=== PATIENT | female | born 1995 | race African-American/Black ===

== ENCOUNTER 2021-03-31 18:57 | Emergency (ER) | payer BC, SELFPAY ==
[2021-03-31 18:59] VITALS: BP 122/73; PULSE 120; RESP 20; TEMP 36.7; O2SAT 100
--- NOTE | 2021-03-31 19:26 | ED.GENADULT ---
HPI - General Adult General Chief complaint: Nausea/Vomiting/Diarrhea Stated complaint: dizzy/vomiting Time Seen by Provider: 03/31/21 19:12 History of Present Illness HPI narrative: Patient with 25-year-old female presents emerged part with chief complaint of nausea and vomiting. Patient reports that she ate out last night and woke up this morning and started having nausea and had several episodes of vomiting. Patient reports that she is currently about 30 weeks followed by OB patient reports no abdominal cramping no loss of fluid no vaginal bleeding. Patient reports has had no diarrhea with this reports that she feels a little dehydrated after the vomiting. Related Data Allergies Allergy/AdvReac Type Severity Reaction Status Date / Time No Known Allergies Allergy Unverified 11/26/17 12:10 Review of Systems Review of Systems: A 10 system review of systems was completed on the patient and is negative except for what is stated in the HPI. Nursing and ancillary documentation was reviewed. Exam Narrative: GENERAL: Well-appearing, well-nourished, and in no acute distress. HEAD: Normocephalic, atraumatic. EYES: PERRLA and EOMI. ENT: Nares clear, no rhinorrhea or epistaxis. Mucous membranes moist. NECK: Supple. CHEST: Clear to auscultation. No respiratory distress. HEART: Regular rate and rhythm. No murmur heard. Normal peripheral pulses. ABDOMEN: Soft, gravid abdomen nontender, nondistended, normal active bowel sounds. EXTREMITIES: Normal range of motion. No edema. SKIN: Warm, dry, no rash. NEURO: No focal deficits. Alert and oriented x3. PSYCH: Normal mood and affect. Course Vital Signs Vital signs: Vital Signs Temperature 36.7 C 03/31/21 18:59 Pulse Rate 120 H 03/31/21 18:59 Respiratory Rate 20 03/31/21 18:59 Blood Pressure 122/73 03/31/21 18:59 Pulse Oximetry 100 03/31/21 18:59 Temperature 36.7 C 03/31/21 18:59 Pulse Rate 120 H 03/31/21 18:59 Respiratory Rate 20 03/31/21 18:59 Blood Pressure 122/73 03/31/21 18:59 Pulse Oximetry 100 03/31/21 18:59 Medical Decision Making Vital Signs Vital Signs: Vital Signs Temperature 36.7 C 03/31/21 18:59 Pulse Rate 120 H 03/31/21 18:59 Respiratory Rate 20 03/31/21 18:59 Blood Pressure 122/73 03/31/21 18:59 Pulse Oximetry 100 03/31/21 18:59 Temperature 36.7 C 03/31/21 18:59 Pulse Rate 120 H 03/31/21 18:59 Respiratory Rate 20 03/31/21 18:59 Blood Pressure 122/73 03/31/21 18:59 Pulse Oximetry 100 03/31/21 18:59 Lab Data Result diagrams: 03/31/21 19:28 03/31/21 19:28 Labs: Lab Results 03/31/21 03/31/21 03/31/21 Range/Units 19:28 19:28 21:16 WBC 8.8 (4.5-10.0) K/mm3 RBC 4.05 L (4.2-5.4) M/mm3 Hgb 12.4 (12.0-15.0) g/dL Hct 38.1 (37.0-47.0) % MCV 94.1 (80-100) fl MCH 30.6 (26-34) pg MCHC 32.5 (32-36) g/dl RDW 14.4 (11.5-14.5) % Plt Count 181 (150-375) k/mm3 MPV 10.3 (7.4-10.4) fl Immature Gran % (Auto) 1.1 H (0-0.5) % Neut % (Auto) 89.8 H (45.5-73.1) % Lymph % (Auto) 4.7 L (18.3-44.2) % [place] % (Auto) 4.2 (2.6-8.5) % Eos % (Auto) 0.1 (0-4.4) % Baso % (Auto) 0.1 L (0.2-1.2) % Lymph # (Auto) 0.41 L (0.9-3.2) K/mm3 [place] # (Auto) 0.4 (0.1-0.6) K/mm3 Eos # (Auto) 0.0 (0-0.3) K/mm3 Baso # (Auto) 0.0 (0.0-0.1) K/mm3 Abs Immat Gran (auto) 0.10 H (0.00-0.031) K/mm3 Absolute Neuts (auto) 7.9 H (1.3-6.7) K/mm3 Absolute Nucleated RBC 0.0 (0.0-0.012) K/mm3 Nucleated RBC % 0.0 (0.0-0.2) % Sodium 134 L (137-145) mmol/L Potassium 3.5 (3.4-5.0) mmol/L Chloride 107 (98-107) mmol/L Carbon Dioxide 19 L (22-30) mmol/L Anion Gap 8 (8-16) mmol/L BUN 8 (7-17) mg/dL Creatinine 0.40 L (0.7-1.0) mg/dL Estim Creat Clear Calc 175 ml/min Estimated GFR > 60 (59 - ) Glucose 85 (65-110) mg/dL Calcium 8.8 (8.4-
[2021-03-31 19:34] LABS: Basophils Percent Auto 0.1 % (0.2-1.2); Eosinophils Percent Auto 0.1 % (0-4.4); Hematocrit 38.1 % (37.0-47.0); Hemoglobin 12.4 g/dL (12.0-15.0); Immature Granulocyte Percent A 1.1 % (0-0.5); Lymphocytes Absolute Auto 0.41 K/mm3 (0.9-3.2); Lymphocytes Percent Auto 4.7 % (18.3-44.2); Mean Corpuscular HGB Conc 32.5 g/dl (32-36); Mean Corpuscular Hemoglobin 30.6 pg (26-34); Mean Corpuscular Volume 94.1 fl (80-100); Mean Platelet Volume 10.3 fl (7.4-10.4); Monocytes Absolute Auto 0.4 K/mm3 (0.1-0.6); Monocytes Percent Auto 4.2 % (2.6-8.5); Neutrophils Absolute Auto 7.9 K/mm3 (1.3-6.7); Neutrophils Percent Auto 89.8 % (45.5-73.1); Platelet Count Result 181 k/mm3 (150-375); Red Blood Count 4.05 M/mm3 (4.2-5.4); Red Cell Distribution Width 14.4 % (11.5-14.5); White Blood Count 8.8 K/mm3 (4.5-10.0)
[2021-03-31] MEDS: SODIUM CHLORIDE 0.9% IV 1,000 ML 999 ML IV CONT (19:34)
[2021-03-31] MEDS: METOCLOPRAMIDE HCL INJ 10 MG/2 ML VIAL IV PUSH (19:36)
[2021-03-31 19:44] LABS: Alanine Aminotransferase 17 U/L (4-35); Albumin Level 3.8 g/dL (3.5-5.1); Alkaline Phosphatase 87 U/L (38-126); Anion Gap 8 mmol/L (8-16); Aspartate Amino Transferase 30 U/L (14-36); Bilirubin,Total 0.6 mg/dL (0.2-1.3); Blood Urea Nitrogen 8 mg/dL (7-17); Calcium 8.8 mg/dL (8.4-10.2); Carbon Dioxide 19 mmol/L (22-30); Chloride 107 mmol/L (98-107); Estimated CRCL calculation 175 ml/min; Estimated Glomerular Filt Rate > 60; Glucose 85 mg/dL (65-110); Lipase 46 U/L (23-300); Potassium 3.5 mmol/L (3.4-5.0); Sodium 134 mmol/L (137-145)
[2021-03-31 21:27] LABS: Add Urine Microscopic? YES; Amorphous Sediment Urine Few; Appearance Urine Cloudy (Clear); Bacteria Urine Trace /hpf; Bilirubin Urine Negative (Negative); Color Urine Amber (Yellow); Glucose Urine UA Negative (Negative); Ketones Urine 2+ mg/dL (Negative); Leukocyte Esterase Ur 3+ LEU/UL (Negative); Mucus Urine Few /lpf; Nitrate Urine Negative (Negative); Protein Urine 1+ mg/dL (Negative); Squamous Epithelial Cell Urine Many /hpf (Few); Urobilinogen Urine Negative mg/dL (<2.0); WBC Urine 31-50 /hpf
[2021-03-31 21:30] LABS: Blood Urine Negative (Negative); Specific Grav Ur 1.032 (1.001-1.035)
[2021-03-31 22:05] VITALS: BP 113/69; PULSE 100; RESP 16; O2SAT 100
== END 2021-03-31 22:05 | disposition home or self-care (01) ==
PROVIDERS: Emergency Provider Emergency Medicine
DX: R11.2 Nausea with vomiting, unspecified (principal); N39.0 Urinary tract infection, site not specified
CPT/HCPCS: 36415; 80053; 81001; 83690; 85025; 87086; 87088; 96361; 96374; 99284; J2765; J7030

== ENCOUNTER 2021-06-04 15:50 | Outpatient (RCR) | payer BC, SELFPAY ==
--- NOTE | ~2021-06-04 | US_ITS ---
EXAMINATION: US OB BPP wo non-stress DATE: 06/04/2021 17:26 INDICATION: Nonreactive nonstress test on in office examination during third trimester . TECHNIQUE: Real-time pelvic ultrasound was performed. The interpreting radiologist was not present fo r the study. COMPARISON: None. FINDINGS: There is a single living fetus in vertex presentation. The placenta is fundal. heart rate is 1 24 beats per minute (bpm). Biophysical profile performed by the technologist: breathing (30 sec sustained breathing in 30 minutes): 2 out of 2 movement (3 gross body movements in 30 minutes): 2 out of 2 tone (one episode of aekjpoi-llteouatz-phidphl limb movement): 2 out of 2 Amniotic fluid pocket (2 cm): 2 out of 2 Total score: 8 out of 8 IMPRESSION: 1. Single living fetus in vertex presentation with heart rate of 124 bpm. 2. Biophysical profile 8 out of 8. Reviewed, dictated and finalized at location A. SLABS SAWYER
[2021-06-04 17:34] VITALS: BP 111/70; PULSE 90
== END 2021-08-01 09:35 | disposition home or self-care (01) ==
LOC: ANHOBOP 15:50
PROVIDERS: Visit Provider Obstetrics & Gynecology
DX: O26.893 Other specified pregnancy related conditions, third trimester (principal); Z3A.39 39 weeks gestation of pregnancy
CPT/HCPCS: 59025; 76819

== ENCOUNTER 2021-06-10 07:12 | Inpatient (IN) | payer BC, SELFPAY ==
[2021-06-10] VITALS (70 sets, daily range): BP systolic 101–153; BP diastolic 55–110; PULSE 71–111; RESP 18; TEMP 36.1–37.1; O2SAT 99–100; BMI 35.1
--- NOTE | 2021-06-10 07:51 | WPDOBADMIT ---
Obstetrics - Admit Note Admission Note: 25 y/o G1 @ 40 weeks here with contractions and started leaking fluid after arrival. VSS Regular contractions FHR category 1 Cervix 2-3 cm per nurse Leaking meconium fluid Planning epidural Anticipate record reviewed. No pertinent additions to the history and/or any subsequent changes in the physical findings that are not consistent with the expected course of the were found. Additions to the history and/or subsequent changes in the physical findings follow. None.
[2021-06-10] MEDS: LACTATED RINGERS 1,000 ML 125 ML IV CONT ×2 (08:26→10:13)
[2021-06-10] MEDS: OXYTOCIN 30 UNITS/NS 500 ML 30 UNITS/500 ML BAG 6 UNITS IV CONT (08:26)
[2021-06-10 08:29] LABS: Basophils Percent Auto 0.2 % (0.2-1.2); Eosinophils Absolute Auto 0.1 K/mm3 (0-0.3); Hematocrit 42.4 % (37.0-47.0); Hemoglobin 14.4 g/dL (12.0-15.0); Immature Granulocyte Absolute 0.08 K/mm3 (0.00-0.031); Lymphocytes Absolute Auto 1.24 K/mm3 (0.9-3.2); Lymphocytes Percent Auto 15.3 % (18.3-44.2); Mean Corpuscular Hemoglobin 31.4 pg (26-34); Mean Corpuscular Volume 92.6 fl (80-100); Mean Platelet Volume 11.2 fl (7.4-10.4); Monocytes Absolute Auto 0.5 K/mm3 (0.1-0.6); Monocytes Percent Auto 6.3 % (2.6-8.5); Neutrophils Absolute Auto 6.2 K/mm3 (1.3-6.7); Neutrophils Percent Auto 76.2 % (45.5-73.1); Platelet Count Result 183 k/mm3 (150-375); Red Blood Count 4.58 M/mm3 (4.2-5.4); White Blood Count 8.1 K/mm3 (4.5-10.0)
--- NOTE | 2021-06-10 10:59 | WPDANESEPP ---
Anes - Eval Pre Procedure Procedure: labor epidural Date/Time: 06/10/21 10:59 Surgeon: deyanira Preop Diagnosis: labor pain Pre Op Diagnosis: Labor Patient Data Age: 25 Gender: F Height: 1.6 m Weight: 90 kg Last Vital Signs Temp 36.5 C 06/10/21 09:35 Pulse 82 06/10/21 10:59 BP 125/71 06/10/21 10:59 Allergies Allergy/AdvReac Type Severity Reaction Status Date / Time No Known Allergies Allergy Verified 05/13/21 14:43 Home Medications Medication Instructions Recorded Confirmed Type prenat.vits,jose cruz,[id number] 1 tablet PO DAILY 05/13/21 06/04/21 History [ #2] diphenhydramine HCl [Benadryl] 25 mg PO HS PRN 06/04/21 06/04/21 History ferrous sulfate [Slow Fe] 142 mg PO DAILY 06/04/21 06/04/21 History fexofenadine [Lucille] 30 mg PO DAILY 06/04/21 06/04/21 History Laboratory Tests 06/10/21 06/10/21 08:13 08:13 WBC 8.1 K/mm3 K/mm3 (4.5-10.0) RBC 4.58 M/mm3 M/mm3 (4.2-5.4) Hgb 14.4 g/dL g/dL (12.0-15.0) Hct 42.4 % % (37.0-47.0) MCV 92.6 fl fl (80-100) MCH 31.4 pg pg (26-34) MCHC 34.0 g/dl g/dl (32-36) RDW 15.0 % H % (11.5-14.5) Plt Count 183 k/mm3 k/mm3 (150-375) MPV 11.2 fl H fl (7.4-10.4) Immature Gran % (Auto) 1.0 % H % (0-0.5) Neut % (Auto) 76.2 % H % (45.5-73.1) Lymph % (Auto) 15.3 % L % (18.3-44.2) [place] % (Auto) 6.3 % % (2.6-8.5) Eos % (Auto) 1.0 % % (0-4.4) Baso % (Auto) 0.2 % % (0.2-1.2) Lymph # (Auto) 1.24 K/mm3 K/mm3 (0.9-3.2) [place] # (Auto) 0.5 K/mm3 K/mm3 (0.1-0.6) Eos # (Auto) 0.1 K/mm3 K/mm3 (0-0.3) Baso # (Auto) 0.0 K/mm3 K/mm3 (0.0-0.1) Abs Immat Gran (auto) 0.08 K/mm3 H K/mm3 (0.00-0.031) Absolute Neuts (auto) 6.2 K/mm3 K/mm3 (1.3-6.7) Absolute Nucleated RBC 0.0 K/mm3 K/mm3 (0.0-0.012) Nucleated RBC % 0.0 % % (0.0-0.2) RPR Pending : gestational age (CHIDI 06/10/21) Patient hx anesthesia problems: none Family hx anesthesia problems: none Results Review: All pre-operative results and documents have been reviewed as part of the pre-operative evaluation. [facility] Family History Family History Grandparent Hypertension Mother Hypertension Social History Social History Smoking status: Never smoker Second hand tobacco smoke exposure: No Substance use: never Spiritual care concerns: No Exam Day of Procedure 06/10/21 10:59 Patient weight: normal Heart: regular rate and rhythm Lungs: normal air movement Airway: Mallampati scale class II Neurological: alert and oriented
--- NOTE | 2021-06-10 15:14 | PM.OBPRVD ---
OB - Delivery Note Procedure Delivery date: 06/10/21 events: Meconium Stained Fluid Intrapartal events: None Induction method: none Delivery monitor: external FHT and external uterine Route of delivery: Episiotomy description: None Laceration Description: None Quantitative Blood Loss (ml): 186 Anesthesia type: Epidural Narrative: [facility] Baby Date of : 06/10/21 Time of : 15:01 Weeks of gestation at delivery: 40 Weight (pounds): 7 Weight (ounces): 14 presentation: vertex position: Left Occiput Anterior Placenta delivery description: Spontaneous cord vessel description: 3 Vessels and Delayed Cord Clamping score one minute: 8 score five minutes: 9 Narrative: Pedi present for meconium fluid. Infant vigorous at delivery. Placed on maternal abdomen. Mother and baby in stable condition. Cord gasses collected and handed off to staff.
[2021-06-11 05:14] VITALS: BP 110/76; PULSE 84; RESP 18; TEMP 37; O2SAT 99
[2021-06-11 05:19] LABS: Hematocrit 35.1 % (37.0-47.0); Hemoglobin 11.8 g/dL (12.0-15.0)
[2021-06-11 07:40] VITALS: BP 99/51; PULSE 72; RESP 18; TEMP 36.3; O2SAT 100
--- NOTE | 2021-06-11 07:51 | P.PNOB_ITS ---
OB - PN: Subj Subjective Date/time seen: 06/11/21 07:51 Patient comments: no complaints baby status: doing well OB - PN: Obj Data Labs CBC & Chem 7: 06/11/21 04:45 Labs: Laboratory Results - last 24 hr 06/10/21 06/10/21 06/11/21 08:13 08:13 04:45 WBC 8.1 RBC 4.58 Hgb 14.4 11.8 L Hct 42.4 35.1 L MCV 92.6 MCH 31.4 MCHC 34.0 RDW 15.0 H Plt Count 183 MPV 11.2 H Immature Gran % (Auto) 1.0 H Neut % (Auto) 76.2 H Lymph % (Auto) 15.3 L [place] % (Auto) 6.3 Eos % (Auto) 1.0 Baso % (Auto) 0.2 Lymph # (Auto) 1.24 [place] # (Auto) 0.5 Eos # (Auto) 0.1 Baso # (Auto) 0.0 Abs Immat Gran (auto) 0.08 H Absolute Neuts (auto) 6.2 Absolute Nucleated RBC 0.0 Nucleated RBC % 0.0 Blood Type B Positive Antibody Screen Negative OB - PN A/P Plan day: 1 Plan: routine care and discharge home (Pt did have a couple elevated blood pressures after delivery. No s/s of pih. Will check labs prior to discharge. Plan to return in 1 week for bp check. PIH precautions given. ) Time Spent With Patient Time: Total time spent is greater than 50% in coordination of care (as docume nted) at patient's floor/unit and/or counseling patient: Time with patient: less than 15 minutes Review of Systems Review of Systems: All systems reviewed & are unremarkable except as noted in HPI and below Exam Narrative: Fundus firm and vaginal flow controlled. No lower ext redness, warmth, or edema. Negative homans. Const: General: comfortable Chest: Breast/axilla inspection: normal inspection of the breasts Resp: Effort & Inspection: normal respiratory effort Cardio: Rate: regular rate GI: GI Palp: Yes Soft to palpation Psych: Appearance: grossly normal Affect: normal affect Attitude: cook helper pastry perative Thought content: Yes Normal thought content present Judgement: Good judgement present (Psych)
[2021-06-11] MEDS: DOCUSATE SODIUM 100 MG CAPSULE PO (09:36)
[2021-06-11 10:02] LABS: Hematocrit 36.2 % (37.0-47.0); Mean Corpuscular HGB Conc 33.1 g/dl (32-36); Mean Corpuscular Hemoglobin 31.4 pg (26-34); Mean Corpuscular Volume 94.8 fl (80-100); Mean Platelet Volume 11.2 fl (7.4-10.4); Platelet Count Result 170 k/mm3 (150-375); Red Blood Count 3.82 M/mm3 (4.2-5.4); Red Cell Distribution Width 15.4 % (11.5-14.5); White Blood Count 12.3 K/mm3 (4.5-10.0)
[2021-06-11 10:26] LABS: Alanine Aminotransferase 15 U/L (4-35); Albumin Level 3.4 g/dL (3.5-5.1); Alkaline Phosphatase 122 U/L (38-126); Anion Gap 6 mmol/L (8-16); Aspartate Amino Transferase 28 U/L (14-36); Bilirubin,Total 0.4 mg/dL (0.2-1.3); Blood Urea Nitrogen 3 mg/dL (7-17); Calcium 9.4 mg/dL (8.4-10.2); Carbon Dioxide 25 mmol/L (22-30); Chloride 103 mmol/L (98-107); Estimated CRCL calculation 151 ml/min; Estimated Glomerular Filt Rate > 60; Glucose 89 mg/dL (65-110); Potassium 3.9 mmol/L (3.4-5.0); Sodium 134 mmol/L (137-145); Uric Acid 3.7 mg/dL (2.5-7.5)
--- NOTE | 2021-06-11 11:00 | PC.NURSE ---
Mother called out for assist with feeding. Mother reports infant is sleepy and makes sleepy attempts to latch with short bursts of nursing. Mother used a nipple shield for all feedings. Mother has a pump at bedside and pumping after each feeding due to nipple shield use. Infant is able to freely thrust tongue past gum ridge and flange both lips. Skin is intact on both nipples, no redness and bruising noted. Nipple care reviewed of lanolin after feedings, warm compresses as needed. Reviewed nipple shield precautions and possible complications. Instructions given on application and cleaning of shield. Patient able to return demonstration on proper application of shield. Discussed the need to initiate pumping if continues to nurse with the shield. Patient verbalizes understanding. Reviewed feeding cues, frequencies, duration of feedings, feeding elimination flow sheet, and signs of adequate intake. Demonstrated stimulation techniques to wake for feeding. Assisted with infant to breast. Reviewed positioning/alignment in football, holding breast in ?C? hold and guided asymmetrical latch on. Reviewed rational for each. Infant was able/unable to latch correctly. nursed sleepily/eagerly with made not effort to latch or suckle. Mother reports has not had an effective feeding of a consistent suck swallow ratio. He has latched with a few short bursts of suckling and then has either released latch or fallen asleep at breast. Discussed the difference of effective vs ineffective feeding. Reviewed infant is latching with good burst of suckling, he is not feeding consistently with adequate milk transfer at this time and continues to need supplement after . Feeding options discussed, Feeding Plan is for mother to put to breast each feeding for up to 15 minutes, then pace feed supplement 20 mls and pump for 10-15 minutes. Parents are comfortable with supplementation and pumping. If begins to nurse effectively with long draws and frequent swallowing noted, may decrease supplementation and discontinue pumping. Suggested mother have LC divisional storekeeper observe feeding before discontinuing supplementation. Discussed increasing supplementation as requires to satisfactions. Reviewed paced feeding and suggested to stop when is satisfied, as long as is having required output. With increased supplementation may not want to feed for 4 hours. Mother will continue to pump on feeding schedule and will increase session to 20 minutes if pumping every 4 hours. Instructed mother to call out for RN assistance if she is unable to latch infant for feeding or she has discomfort with nursing. Instructed feeding should be initiated three hours from start of last feeding or if feeding cues are noted before. Mother voiced understanding of information shared.
--- NOTE | 2021-06-11 11:14 | WPDANLDPN2 ---
Anes-Prog Note L&D Date/Time: 06/11/21 11:14 Comfortable throughout: labor and delivery Neuraxial method: epidural Epidural/Spinal procedure site: clean & non-tender Neuro status: Neuro function grossly intact. Cardiovascular status: normal Respiratory status: normal Airway patency: baseline Mental status: baseline Post-Op hydration status: normal Vital Signs: Last Vital Signs Temp 36.3 C L 06/11/21 07:40 Pulse 72 06/11/21 07:40 Resp 18 06/11/21 07:40 BP 99/51 L 06/11/21 07:40 Pulse Ox 100 06/11/21 07:40 Pain score (VAS): 0 I/O: Intake & Output 06/10/21 06/11/21 06/11/21 23:59 07:59 15:59 Output Total 125 Balance -125 Post-procedural complaints: none Patient feedback: Patient satisfied with anesthetic care.
[2021-06-11 11:36] LABS: Rapid Plasma Reagin Non-Reactive (NonReactive)
[2021-06-11 11:56] VITALS: BP 113/74; PULSE 80; RESP 18; TEMP 36.5; O2SAT 100
--- NOTE | 2021-06-11 15:15 | PC.NURSE ---
Mother called out for assist with feeding. Demonstrated stimulation techniques to wake for feeding. Assisted with infant to breast. Reviewed positioning/alignment in football, holding breast in ?C? hold and guided asymmetrical latch on. Reviewed rational for each. Several attempts before was able to latch correctly. nursed eagerly, with steady draws for short burst and long pausing. Advised to stimulate to keep infant awake and effectively nursing for increased stimulation, increased intake and to assist with maintaining deep latch. Discussed the difference of effective vs ineffective feeding. Reviewed infant is latching with good burst of suckling, he is not feeding consistently with adequate milk transfer at this time and continues to need supplement after . Feeding options discussed, parents will continue to put to breast each feeding for up to 15 minutes, then pace feed supplement 15 mls and pump for 10-15 minutes. Parents are comfortable with supplementation and pumping. If infant begins to nurse effectively with long draws and frequent swallowing noted, may decrease supplementation and discontinue pumping. Suggested mother have LC elevator troubleshooter observe feeding before discontinuing supplementation. Discussed increasing supplementation as infant requires to satisfactions. Reviewed paced feeding and suggested to stop when infant is satisfied, as long as is having required output. With increased supplementation infant may not want to feed for 4 hours. Mother will continue to pump on infant feeding schedule and will increase session to 20 minutes if pumping every 4 hours. Instructed mother to call out for RN assistance if she is unable to latch for feeding or she has discomfort with nursing. Instructed feeding should be initiated three hours from start of last feeding or if feeding cues are noted before. Mother voiced understanding of information shared.
[2021-06-11 20:20] VITALS: BP 107/72; PULSE 73; RESP 18; TEMP 36.6; O2SAT 100
[2021-06-12 07:45] VITALS: BP 118/78; PULSE 85; RESP 16; TEMP 36.4; O2SAT 100
[2021-06-12] MEDS: DOCUSATE SODIUM 100 MG CAPSULE PO (09:47)
--- NOTE | 2021-06-12 13:51 | PC.NURSE ---
1230 Patient viewed the discharge video Mother & Baby Care, The First Two Weeks . Patient was given the opportunity and encouraged to ask questions. Patient verbalized understanding of information shared and has been given the mother/baby guide for home reference.
[2021-06-14 07:52] VITALS: BP 120/82; PULSE 87; RESP 16; TEMP 36.8; O2SAT 100
--- NOTE | 2021-07-05 08:19 | PM.OBDSVD ---
DS: Admitting Diagnosis Discharge Date 06/12/21 Admitting Diagnosis Labor OB - DS: Summary OB Procedures : None OB Procedures Intrapartum: Spontaneous Vag Delivery OB Procedures: : None Time Spent with Patient Time attestation: Total time spent providing and/or coordinating discharge services: DS: Data Data Completed and Pending Completed studies during hospitalization: Pending at discharge 06/10/21 15:46 Surgical [PTH] Routine Discharge Plan Discharge Attending physician on discharge: Shobha Hanna Consulting providers: Shobha Hanna Discharging Clinician: Shobha Hanna Patient Disposition: Home, Self-Care Activity: pelvic rest Diet: as tolerated Discharge Instructions: Education: Mom and Baby Guide Given to: Mother Follow-Up: Call your delivering provider's office for an appointment to be seen in: 4 Weeks Mom and baby should come to the [facility] for the follow-up appointment. Appointment Date/Time: Monday, June 14, 2021 at 8:00 am What to expect at your follow-up visit: Physical Assessment Call [phone] if you are unable to keep your appointment time. BREAST CARE: * Wear a snug supportive bra. * For engorgement discomfort: Breast Feeding: * Apply warm moist washcloths * Express milk as needed to relieve engorgement * Wear loose clothing Bottle Feeding: * May apply ice packs * For sore nipples: * Identify correct latch-on * Apply warm moist washcloths before and after nursing * Air dry nipples after nursing * May apply Lansinoh cream to nipples EPISIOTOMY/PERINEAL CARE: * Until bleeding stops, use your javier bottle after urinating * Change your pad frequently throughout the day * You may take sitz baths several times a day (fill your bathtub with warm water and soak for 20 minutes.) Do NOT bathe in the water * No tub baths until seen by your physician - You may shower ACTIVITY: * Rest as much as possible. * Do not exercise or lift anything heavier than your baby (such as laundry or other children.) * Avoid stairs or driving as much as possible. * Do not put anything into the vagina. No douching, tampons, or sexual activity until seen by physician. NOTIFY PHYSICIAN IF YOU HAVE ANY QUESTIONS OR IF ANY OF THE FOLLOWING SYMPTOMS OCCUR: * If your episiotomy or incision becomes red, swollen, or more painful than what you have experienced in the hospital. * If your vaginal bleeding becomes foul smelling. * If your vaginal bleeding becomes more heavy than a period or if your bleeding changes from pink to bright red. However, you may pass an occasional walnut-sized clot once or twice for the first week . * If you experience a sharp, shooting pain in you calves. * If you discover a hard, reddened area on your breast or if you experience flu-like symptoms. DIET: * Eat regular, well-balanced meals. * Drink plenty of fluids daily. If , drink to thirst. Follow-up/Referrals: Shobha Hanna CNM [Certified Nurse Computer Systems Design Analyst] - 4 Weeks Discharge Medications: Continued Slow Fe 142 mg (45 mg iron) Tablet Extended Release 142 mg PO DAILY RF: 0 prenat.vits,jose cruz,[id number] Tablet 1 tablet PO DAILY RF: 0 Discontinued Lucille 30 mg Tablet 30 mg PO DAILY RF: 0 diphenhydramine HCl [Benadryl] 25 mg Capsule 25 mg PO HS PRN (Reason: Stuffy nose) RF: 0 Date of admission: 06/10/21 07:12 Primary Care Provider: PHYSICIAN,SCIENTIFIC RESEARCH MANAGER Admitting Provider: Jamee Fernandez Attending physician on admission: Jamee Fernandez Condition: Stable
== END 2021-06-12 13:47 | disposition home or self-care (01) | DRG 807 ==
LOC: ANHLDR 07:47 → ANHOB2 20:29
PROVIDERS: Advanced Practice Midwife; Admitting Provider Obstetrics & Gynecology; Visit Provider Obstetrics & Gynecology
DX: O77.0 Labor and delivery complicated by meconium in amniotic fluid (principal); Z37.0 Single live birth; Z3A.40 40 weeks gestation of pregnancy; R03.0 Elevated blood-pressure reading, without diagnosis of hypertension
CPT/HCPCS: 36415; 80053; 84550; 85014; 85018; 85025; 85027; 86592; 86850; 86900; 86901; 88307; A9270; J2590; J2795; J7120

== ENCOUNTER 2022-12-04 14:52 | Outpatient (CLI) | payer OTHER, SELFPAY ==
--- NOTE | ~2022-12-04 | US_ITS ---
EXAMINATION: US breast LT complete HISTORY: Palpable mass at the 12:00 location of the left breast TECHNIQUE: Limited left breast ultrasound was performed. FINDINGS: There is a 1.5 x 0.7 cm oval, circumscribed, parallel, hypoechoic mass with posterior acous tic enhancement, peripheral vascularity, and microlobulated and angular margins at the 12:00 location , 5 cm from the nipple corresponding to the palpable abnormality of concern. IMPRESSION: Indeterminate left breast mass corresponding to the palpable abnormality of the left breast. Although finding could represent a fibroadenoma, ultrasound-guided biopsy is recommended. BI-RADS category 4, suspicious findings. Reviewed, dictated and finalized at location A. IMPRESSION: Indeterminate left breast mass corresponding to the palpable abnormality of the left breast. Although finding could represent a fibroadenoma, ultrasound-guide d biopsy is recommended. BI-RADS category 4, suspicious findings.
== END 2022-12-04 14:53 | disposition home or self-care (01) ==
LOC: CHSIMG 14:53
PROVIDERS: PCP Advanced Practice Midwife; Visit Provider Obstetrics & Gynecology
DX: N63.21 Unspecified lump in the left breast, upper outer quadrant (principal)
CPT/HCPCS: 76641

== ENCOUNTER 2023-08-02 17:25 | Inpatient (IN) | payer BC, OTHER, SELFPAY ==
[2023-08-02] VITALS (53 sets, daily range): BP systolic 92–143; BP diastolic 59–101; PULSE 70–170; RESP 16–18; TEMP 36.4–37; O2SAT 97–100; BMI 29.7
[2023-08-02] MEDS: LACTATED RINGERS 1,000 ML 125 ML IV CONT ×2 (17:50→18:31)
--- NOTE | 2023-08-02 17:55 | LDADM ---
This patient, Jen Bryan, was admitted to Labor/Delivery/Recovery 104 on 08/02/23 at 17:25. Plans for labor, pain management and were discussed with patient. Patient/family oriented to hospital policies and general routines including ID bracelet, bed and alarms, visiting hours, pain management, procedures, bathroom and other care routines, personal items, smoking policy, room service/diet and guest tray routines, infant security routines, and visiting hours. Patient/Family are encouraged to report perceived risks to care and to ask questions if they do not understand what they are told or what they should do. See OBIX for further documentation.
[2023-08-02 17:57] LABS: Basophils Percent Auto 0.4 % (0.2-1.2); Eosinophils Percent Auto 0.4 % (0-4.4); Hematocrit 39.9 % (37.0-47.0); Hemoglobin 12.8 g/dL (12.0-15.0); Immature Granulocyte Absolute 0.06 K/mm3 (0.00-0.031); Immature Granulocyte Percent A 0.7 % (0-0.5); Lymphocytes Absolute Auto 1.54 K/mm3 (0.9-3.2); Mean Corpuscular HGB Conc 32.1 g/dl (32-36); Mean Corpuscular Hemoglobin 29.8 pg (26-34); Mean Corpuscular Volume 92.8 fl (80-100); Mean Platelet Volume 11.8 fl (7.4-10.4); Monocytes Absolute Auto 0.5 K/mm3 (0.1-0.6); Monocytes Percent Auto 6.3 % (2.6-8.5); Neutrophils Absolute Auto 5.9 K/mm3 (1.3-6.7); Neutrophils Percent Auto 73.2 % (45.5-73.1); Platelet Count Result 195 k/mm3 (150-375); Red Cell Distribution Width 13.4 % (11.5-14.5); White Blood Count 8.1 K/mm3 (4.5-10.0)
--- NOTE | 2023-08-02 18:14 | P.PNAN_ITS ---
Anes - Eval Pre Procedure Procedure: Labor epidural Date/Time: 08/02/23 18:14 Surgeon: Oleg Preop Diagnosis: Abdominal pain with contractions Pre Op Diagnosis: Contractions Patient Data Age: 27 Gender: F Height: 1.61 m Weight: 77.5 kg Last Vital Signs Pulse 86 08/02/23 18:01 BP 120/85 08/02/23 18:01 O2 Del Method Room Air 08/02/23 17:53 Allergies Allergy/AdvReac Type Severity Reaction Status Date / Time No Known Allergies Allergy Verified 07/07/23 15:28 Home Medications Medication Instructions Recorded Confirmed Type prenat.vits,jose cruz,ooc-cifh-yncnd 1 tablet PO DAILY 05/13/21 07/07/23 History Laboratory Tests 08/02/23 17:52 WBC 8.1 K/mm3 (4.5-10.0) RBC 4.30 M/mm3 (4.2-5.4) Hgb 12.8 g/dL (12.0-15.0) Hct 39.9 % (37.0-47.0) MCV 92.8 fl (80-100) MCH 29.8 pg (26-34) MCHC 32.1 g/dl (32-36) RDW 13.4 % (11.5-14.5) Plt Count 195 k/mm3 (150-375) MPV 11.8 H fl (7.4-10.4) Immature Gran % (Auto) 0.7 H % (0-0.5) Neut % (Auto) 73.2 H % (45.5-73.1) Lymph % (Auto) 19.0 % (18.3-44.2) [place] % (Auto) 6.3 % (2.6-8.5) Eos % (Auto) 0.4 % (0-4.4) Baso % (Auto) 0.4 % (0.2-1.2) Lymph # (Auto) 1.54 K/mm3 (0.9-3.2) [place] # (Auto) 0.5 K/mm3 (0.1-0.6) Eos # (Auto) 0.0 K/mm3 (0-0.3) Baso # (Auto) 0.0 K/mm3 (0.0-0.1) Abs Immat Gran (auto) 0.06 H K/mm3 (0.00-0.031) Absolute Neuts (auto) 5.9 K/mm3 (1.3-6.7) Absolute Nucleated RBC 0.0 K/mm3 (0.0-0.012) Nucleated RBC % 0.0 % (0.0-0.2) RPR Pending : gestational age HCG: positive Patient hx anesthesia problems: none Family hx anesthesia problems: none Results Review: All pre-operative results and documents have been reviewed as part of the pre- operative evaluation. [facility] Past Medical History Medical History Overweight (BMI 25.0-29.9) and not yet delivered Family History Family History Grandparent Hypertension Mother Hypertension Diabetes mellitus Social History Social History Smoking status: Never smoker Second hand tobacco smoke exposure: No Substance use: never Do You Feel Safe in your Home?: Yes Lack of Transportation: No Lack of Food: Never True Current Housing: I Have Housing Concerned About Future Housing: No Difficulty Paying Gas/Electric Bills: No Difficulty Paying for Meds: No Currently Unemployed: No Education: Master's Degree or Higher Difficulty w/ Childcare or Family Care: No Spiritual care concerns: No Exam Day of Procedure 08/02/23 18:14 Patient weight: overweight
--- NOTE | 2023-08-02 19:40 | WPDOBADMIT ---
Obstetrics - Admit Note Admission Note: record reviewed. No pertinent additions to the history and/or any subsequent changes in the physical findings that are not consistent with the expected course of the were found. Additions to the history and/or subsequent changes in the physical findings follow. None. Pt arrived in labor, SVE /-1 arom thick meconium, anticipate vaginal delivery
[2023-08-02] MEDS: OXYTOCIN 30 UNITS/NS 500 ML 30 UNITS/500 ML BAG 999 UNITS IV CONT (21:33)
--- NOTE | 2023-08-02 21:47 | PM.OBPRVD ---
OB - Vaginal Delivery Note Procedure Delivery date: 08/02/23 Intrapartal Events: Other (meconium) Induction method: None Delivery augmentation: Rupture of Membranes and Pitocin Delivery monitor: External FHT and External Uterine Route of delivery: Laceration Description: None Specimen: Yes Quantitative Blood Loss (ml): 75 Anesthesia type: Epidural Disposition: Floor Complications: No immediate complications [place] Baby Date of : 08/02/23 Time of : 21:33 Weeks of gestation at delivery: 39 gender: Female presentation: vertex position: Right Occiput Anterior Placenta delivery description: Manual Removal Cord Vessel Description: 3 Vessels, Clamped/Cut and Delayed Cord Clamping score one minute: 9 score five minutes: 9 Narrative: mother and baby skin to skin in stable condition
[2023-08-02] MEDS: ceFAZolin 2 GM/D5W 50 ML 2 GM/50 ML BAG IVPB (22:14)
[2023-08-02] MEDS: OXYTOCIN 30 UNITS/NS 500 ML 30 UNITS/500 ML BAG 125 UNITS IV CONT (22:15)
[2023-08-03 00:01] VITALS: BP 104/62; PULSE 74
[2023-08-03 01:58] VITALS: BP 120/74; PULSE 79; RESP 18; TEMP 37.3; O2SAT 99
--- NOTE | 2023-08-03 01:58 | OBPPTRN ---
Patient transferred to post room #286 via wheelchair. Support person present. Oriented to unit, room, information board, rooming in, admission packet and security measures. Patient verbalizes understanding.
[2023-08-03 03:40] VITALS: BP 106/70; PULSE 89; RESP 18; TEMP 37.2; O2SAT 97
[2023-08-03 04:19] LABS: Hematocrit 34.4 % (37.0-47.0); Hemoglobin 11.2 g/dL (12.0-15.0)
[2023-08-03 08:05] VITALS: BP 99/60; PULSE 75; RESP 16; TEMP 37.1; O2SAT 100
--- NOTE | 2023-08-03 08:45 | WPDANLDPN2 ---
Anes-Prog Note L&D Date/Time: 08/03/23 08:45 Comfortable throughout: labor and delivery Neuraxial method: epidural Epidural/Spinal procedure site: clean & non-tender Neuro status: Neuro function grossly intact. Cardiovascular status: normal Respiratory status: normal Airway patency: baseline Mental status: baseline Post-Op hydration status: normal Vital Signs: Last Vital Signs Temp 37.2 C 08/03/23 03:40 Pulse 89 08/03/23 03:40 Resp 18 08/03/23 03:40 BP 106/70 08/03/23 03:40 Pulse Ox 97 08/03/23 03:40 O2 Del Method Room Air 08/02/23 17:53 Pain score (VAS): 07/29 I/O: Intake & Output 08/02/23 08/03/23 08/03/23 23:59 07:59 15:59 Intake Total 2049 Output Total 93 Balance 2049 - Post-procedural complaints: none Patient feedback: Patient satisfied with anesthetic care.
--- NOTE | 2023-08-03 08:58 | PM.OBPNVD ---
OB - PN: Subj Subjective Date/time seen: 08/03/23 08:58 Patient comments: no complaints, pain well controlled, incisional pain, tolerating diet and flatus present OB - PN: Obj Data Labs 08/03/23 03:26 Labs: Laboratory Results - last 24 hr 08/02/23 08/03/23 17:52 03:26 WBC 8.1 RBC 4.30 Hgb 12.8 11.2 L Hct 39.9 34.4 L MCV 92.8 MCH 29.8 MCHC 32.1 RDW 13.4 Plt Count 195 MPV 11.8 H Immature Gran % (Auto) 0.7 H Neut % (Auto) 73.2 H Lymph % (Auto) 19.0 [place] % (Auto) 6.3 Eos % (Auto) 0.4 Baso % (Auto) 0.4 Lymph # (Auto) 1.54 [place] # (Auto) 0.5 Eos # (Auto) 0.0 Baso # (Auto) 0.0 Abs Immat Gran (auto) 0.06 H Absolute Neuts (auto) 5.9 Absolute Nucleated RBC 0.0 Nucleated RBC % 0.0 Blood Type B Positive Antibody Screen Negative OB - PN A/P Plan day: 1 Plan: routine care Comments: No problems, routine care Time Spent With Patient Time: Total time spent is greater than 50% in coordination of care (as documented) at patient's floor/unit and/or counseling patient: Exam Const: General: comfortable, no acute distress and alert Resp: Effort & Inspection: normal respiratory effort Auscultation: no crackles, no rales and no rhonchi Cardio: Rate: regular rate Heart sounds: no click, no murmurs and no rubs GI: Inspection: non-distended GI Palp: No Tenderness to palpation present (GI) Auscultation: normal bowel sounds Other: Incision - CDI Extrem: General: normal to inspection, no pedal edema and no calf tenderness
[2023-08-03 10:05] LABS: Rapid Plasma Reagin Non-Reactive (NonReactive)
[2023-08-03 11:57] VITALS: BP 108/67; PULSE 75; RESP 16; TEMP 37.2; O2SAT 100
[2023-08-03 19:20] VITALS: BP 99/56; PULSE 73; RESP 16; TEMP 36.7; O2SAT 100
[2023-08-04 07:55] VITALS: BP 110/66; PULSE 65; RESP 18; TEMP 36.8; O2SAT 100
--- NOTE | 2023-08-04 09:41 | PM.OBPNVD ---
OB - PN: Subj Subjective Date/time seen: 08/04/23 09:41 Interval history: Doing well, PPD#2 Formula feeding, discussed tight bras, no direct breast stimulation, cold compresses to reduce engorgement Baby feeding well Pain well controlled REady for discharge home OB - PN: Obj Data Labs 08/03/23 03:26 Labs: Laboratory Results - last 24 hr 08/02/23 17:52 RPR Non-reactive OB - PN A/P Plan day: 2 Plan: discharge home Comments: follow up in 4 weeks Time Spent With Patient Time: Total time spent is greater than 50% in coordination of care (as documented) at patient's floor/unit and/or counseling patient: Review of Systems Review of Systems: All systems reviewed & are unremarkable except as noted in HPI and below Exam Const: General: comfortable and no acute distress Resp: Effort & Inspection: normal respiratory effort
--- NOTE | 2023-08-04 09:44 | PM.OBDSVD ---
DS: Admitting Diagnosis Discharge Date 08/04/23 Admitting Diagnosis labor DS: Discharge Diagnosis Discharge Diagnosis (1) (spontaneous vaginal delivery): Code(s): O80 - Encounter for full-term uncomplicated delivery Status: Acute OB - DS: Summary OB Procedures : None OB Procedures Intrapartum: Spontaneous Vag Delivery OB Procedures: : None Peripartum Data Laceration Description: None Time Spent with Patient Time attestation: Total time spent providing and/or coordinating discharge services: DS: Data Data Completed and Pending Pending studies at discharge: Pending at discharge 08/02/23 21:36 Surgical [PTH] Routine Labs on day of discharge: Labs from last 24 hours 08/02/23 17:52 RPR Non-reactive Discharge Plan Discharge Attending physician on discharge: Conner Dejesus Discharging Clinician: Conner Dejesus Patient Disposition: Home, Self-Care Activity: may shower and pelvic rest Diet: as tolerated Patient Instructions: Antibiotic Form Stand Alone Forms: General Discharge Information Follow-up/Referrals: Conner Dejesus MD [Physician] - 4 Weeks Discharge Medications: Continued prenat.vits,jose cruz,[id number] Tablet 1 tablet PO DAILY Date of admission: 08/02/23 17:25 Primary Care Provider: PHYSICIAN,FRONT OFFICE SECRETARY Admitting Provider: Conner Dejesus Attending physician on admission: Conner Dejesus Condition: Stable
[2023-08-05 11:14] VITALS: BP 106/72; PULSE 77; RESP 18; TEMP 36.9; O2SAT 100
== END 2023-08-04 11:17 | disposition home or self-care (01) | DRG 807 ==
LOC: ANHLDR 17:45 → ANHOB2 08-03 02:26
PROVIDERS: Advanced Practice Midwife; Admitting Provider Obstetrics & Gynecology; Visit Provider Obstetrics & Gynecology
DX: O77.0 Labor and delivery complicated by meconium in amniotic fluid (principal); Z37.0 Single live birth; Z3A.39 39 weeks gestation of pregnancy
CPT/HCPCS: 36415; 85014; 85018; 85025; 86592; 86850; 86900; 86901; 88307; A9270; J0690; J2590; J2795; J7120

== ENCOUNTER 2024-04-15 08:21 | Outpatient (CLI) | payer OTHER, SELFPAY ==
--- NOTE | ~2024-04-15 | US_ITS ---
US breast LT limited 04/15/2024 08:47 Indication: Follow-up left breast mass Procedure: High-resolution Limited ultrasound of the left breast Comparison: 12/04/2022 Findings: There is a stable hypoechoic solid mass with irregular margins at 12:00, 5 cm from the nipp le measuring 10 x 11 x 8 mm compared with 13 x 11 x 9 mm on prior examination. No additional masses a re identified. There is marginal vascularity. Impression: 1: Stable to slightly diminished size of left breast mass at 12:00, 5 cm from the nipple measuring 11 mm maximum dimension, likely benign. BI-RADS CATEGORY 3-PROBABLY BENIGN FINDING RECOMMENDATION: 12 month follow-up left breast ultrasound recommended. Reviewed, dictated and finalized at location B. Impression: 1: Stable to slightly diminished size of left breast mass at 12:00, 5 cm from t he nipple measuring 11 mm maximum dimension, likely benign. BI-RADS CATEGORY 3-PROBABLY BENIGN FINDING RECOMMENDATION: 12 month follow-up left breast ultrasound recommended.
== END 2024-04-15 08:22 | disposition home or self-care (01) ==
LOC: MICIMG 08:22
PROVIDERS: PCP Obstetrics & Gynecology; Visit Provider Obstetrics & Gynecology
DX: N63.20 Unspecified lump in the left breast, unspecified quadrant (principal)
CPT/HCPCS: 76642